=== PATIENT | female | born 1945 | race Caucasian/White ===

== ENCOUNTER 2016-10-27 12:33 | Emergency (ER) | payer MEDICARE, OTHER ==
[2016-10-27 12:57] VITALS: BP 144/86
--- NOTE | 2016-10-27 13:41 | EDM.PDOC ---
ED HPI GENERAL MEDICAL PROBLEM - General Chief Complaint: Genitourinary Problem Stated Complaint: UTI?? Time Seen by Provider: 10/27/16 13:38 Source of Information: Reports: Patient, RN Notes Reviewed History Limitations: Reports: No Limitations - History of Present Illness INITIAL COMMENTS - FREE TEXT/NARRATIVE: 71-year-old female presents emergency department a complaint of urinary frequency and dysuria, she was recently treated for urinary tract infection ten- day course of ciprofloxacin she states initially she felt well on the medication after about 5 days and then being off the medication for a week or so her symptoms started to return, she does admit to having vaginal atrophy and other postmenopausal symptoms of which she takes estradiol every other day she has been on that regimen for about one year lower back Pain Score (Numeric/FACES): 4 - Related Data Allergies Allergy/AdvReac Type Severity Reaction Status Date / Time phenazopyridine Allergy Nausea Verified 10/27/16 12:58 [From Pyridium] Sulfa (Sulfonamide Allergy Hives Verified 10/27/16 12:58 Antibiotics) Home Meds: Home Meds Allopurinol [Zyloprim] 300 mg PO DAILY 10/27/16 [History] Citalopram Hydrobromide [Citalopram HBr] 20 mg PO DAILY 10/27/16 [History] Diltiazem [Cardizem] 90 mg PO BID 10/27/16 [History] Estradiol [Estradiol] 0.5 mg PO DAILY 10/27/16 [History] Levothyroxine [Synthroid] 50 mcg PO ACBREAKFAST 10/27/16 [History] Lisinopril [Lisinopril] 20 mg PO BID 10/27/16 [History] Meloxicam [Meloxicam] 15 mg PO DAILY 10/27/16 [History] Metoprolol Tartrate 50 mg PO BID 10/27/16 [History] Omeprazole 40 mg PO DAILY 10/27/16 [History] atorvaSTATin [Lipitor] 20 mg PO DAILY 10/27/16 [History] Past Medical History Cardiovascular History: Reports: High Cholesterol, Hypertension Musculoskeletal History: Reports: Osteoarthritis Endocrine/Metabolic History: Reports: Hypothyroidism Social & Family History - Tobacco Use Smoking Status *Q: Never Smoker Second Hand Smoke Exposure: No - Recreational Drug Use Recreational Drug Use: No ED ROS GENERAL - Review of Systems Review Of Systems: See Below Constitutional: Reports: No Symptoms Respiratory: Reports: No Symptoms Cardiovascular: Reports: No Symptoms GI/Abdominal: Reports: Abdominal Pain : Reports: Dysuria, Frequency ED EXAM, RENAL/ - Physical Exam Exam: See Below Exam Limited By: No Limitations General Appearance: Alert, WD/WN, No Apparent Distress GI/Abdominal: Normal Bowel Sounds, Soft, Non-Tender, No Organomegaly, No Distention, No Mass Course - Vital Signs Last Recorded V/S: Last Vital Signs Temp 96.1 F 10/27/16 12:53 Pulse 64 10/27/16 12:53 Resp 18 10/27/16 12:53 BP 144/86 H 10/27/16 12:53 Pulse Ox 98 10/27/16 12:53 - Orders/Labs/Meds Labs: Laboratory Tests 10/27/16 Range/Units 13:01 Urine Color Yellow Urine Appearance Cloudy Urine pH 5.0 (4.5-8.0) Ur Specific Shiner 1.015 (1.008-1.030) Urine Protein Negative (NEGATIVE) mg/dL Urine Glucose (UA) Normal (NEGATIVE) mg/dL Urine Ketones Negative (NEGATIVE) mg/dL Urine Occult Blood Negative (NEGATIVE) Urine Nitrite Negative (NEGATIVE) Urine Bilirubin Negative (NEGATIVE) Urine Urobilinogen Normal (NORMAL) mg/dL Ur Leukocyte Esterase Negative (NEGATIVE) Urine RBC 0-5 (0-5) Urine WBC 0-5 (0-5) Ur Epithelial Cells Moderate Amorphous Sediment Few Urine Bacteria Moderate Urine Mucus Few Departure - Departure Time of Disposition: 13:40 Disposition: Home, Self-Care 01 Condition: Good Clinical Impression: Vaginal atrophy - Discharge Information Forms: ED Department Discharge Additional Instructions: Try the vaginal cream every day for the next 2 weeks and then start reducing your usage and monitor your symptoms, recommend following up with [facility] if no improvement, follow-up with your primary care provider upon return home - Assessment/Plan Plan: Assessment Acuity = acute Site and laterality = vaginal atrophy Etiology = secondary to hormonal imbalance Manifestations = dysuria Location of injury = Home Lab values = urinalysis unremarkable Plan Plan have her continue with her estradiol orally but and a vaginal cream of Estrace once a day for 2 weeks and then go to twice a week thereafter she'll be traveling for the next 3 weeks at which time she'll be at home she'll follow-up with her primary care provider and consider consult with [facility] Patient was in agreement with the plan all questions were answered, they were instructed to return to the emergency department or call for worsening symptoms. This note was dictated using [employer] voice recognition software please call with any questions.
== END 2016-10-27 13:48 | disposition home or self-care (01) ==
LOC: JP.ED 12:33
DX: N95.2 Postmenopausal atrophic vaginitis (principal); R35.0 Frequency of micturition; R30.0 Dysuria; I10 Essential (primary) hypertension; E78.00 Pure hypercholesterolemia, unspecified; M19.90 Unspecified osteoarthritis, unspecified site; E03.9 Hypothyroidism, unspecified; Z87.448 Personal history of other diseases of urinary system; Z88.2 Allergy status to sulfonamides; Z88.8 Allergy status to other drugs, medicaments and biological substances
CPT/HCPCS: 81001; 99283; 99284